=== PATIENT | female | born 1955 | race Caucasian/White ===

== ENCOUNTER 2022-04-13 02:42 | Emergency (ER) | payer MEDICARE, OTHER ==
[2022-04-13] MEDS ORDERED: Morphine 4 MG/ML VIAL ONE (03:21)
[2022-04-13] MEDS ORDERED: Ondansetron PF 4 MG/2 ML Vial ONE (03:21)
[2022-04-13] MEDS ORDERED: Ketorolac Tromethamine 30 MG/ML VIAL ONE (03:21)
[2022-04-13 03:54] LABS: Bilirubin Neg (Negative); Blood, Urine 150 (Negative); Clarity Clear (Clear); Glucose, Urine (Dipstick) Normal (Negative); Ketone, Urine Negative (Negative); Leukocyte 25 (Negative); Nitrite Negative (Negative); Protein, Urine (Dipstick) 30 mg/dl (Neg-Trace); Urobilinogen Normal mg/dL (Less than 2); pH, Urine 6.5 (5.0-9.0)
[2022-04-13 03:56] LABS: #Basophils 0.1 10x3/uL (0.0-0.2); #Eosinphils 0.2 10x3/uL (0.0-0.5); #Monocytes 1.2 10x3/uL (0.0-1.1); #Neutrophils 7.6 10x3/uL (1.5-8.4); %Basophils 0.6 % (0.0-2.0); %Lymphocytes 21.9 % (18.0-47.0); %Monocytes 10.3 % (0.0-10.0); %Neutrophils 64.9 % (40.0-75.0); Hemoglobin 14.3 g/dL (12.0-15.5); Mean Corpuscular HGB CONC 34.7 g/dL (32.0-36.0); Mean Corpuscular Hemoglobin 30.4 pg (27.0-33.0); Mean Corpuscular Volume 87.5 fl (81.6-98.3); Mean Platelet Volume 10.5 fl (7.4-10.4); Platelet Count 217 10x3/uL (150-450); RBC Distribution Width 12.7 % (11.5-14.5); Red Blood Cell (RBC) Count 4.71 10x6/uL (3.90-5.03); White Blood Cell (WBC) Count 11.7 10x3/uL (3.5-10.5)
[2022-04-13 04:02] LABS: ALT (SGPT) 14 U/L (8-55); AST (SGOT) 17 U/L (5-34); Albumin 4.5 g/dL (3.4-4.8); Alkaline Phosphatase 64 U/L (40-110); Anion Gap 16 mmol/L (10-20); BUN (Urea Nitrogen) 18 mg/dL (9.8-20.1); Calc. Creatinine Clearance 0 mL/min (70-130); Carbon Dioxide 25 mmol/L (23-31); Chloride 107 mmol/L (98-107); Estimated GFR 45; Globulin 2.9 g/dL (2.4-3.5); Glucose 129 mg/dL (80-115); Magnesium 2.1 mg/dL (1.6-2.6); Potassium 4.1 mmol/L (3.5-5.1); Protein, Total 7.4 g/dL (5.8-8.1); Sodium 144 mmol/L (136-145)
[2022-04-13 04:19] LABS: Bilirubin, Total 0.7 mg/dL (0.2-1.2)
[2022-04-13 04:23] LABS: Bacteria/HPF None Seen HPF (None Seen); RBC/HPF 0-3 HPF (0-3); Squamous Epithelial 0-3 HPF (0-3)
[2022-04-13] MEDS ORDERED: Tamsulosin HCl 0.4 MG CAP ONE (05:52)
== END 2022-04-13 06:36 | disposition home or self-care (01) ==
LOC: CSHERS 02:42
DX: N13.2 Hydronephrosis with renal and ureteral calculous obstruction (principal)
CPT/HCPCS: 74176; 80053; 81003; 81015; 83735; 85025; 96361; 96374; 96375; J1885; J2270; J2405